=== PATIENT | female | born 1970 | race Caucasian/White ===

== ENCOUNTER 2018-01-02 15:59 | Emergency (ER) | payer OTHER, BC | END 2018-01-02 18:07 | disposition home or self-care (01) | LOC: M ED 15:59 | DX: S60.512A Abrasion of left hand, initial encounter (principal); S60.222A Contusion of left hand, initial encounter; W23.0XXA Caught, crushed, jammed, or pinched between moving objects, initial encounter; Y92.89 Other specified places as the place of occurrence of the external cause; I10 Essential (primary) hypertension; K21.9 Gastro-esophageal reflux disease without esophagitis; F41.9 Anxiety disorder, unspecified; F32.9 Major depressive disorder, single episode, unspecified; F43.10 Post-traumatic stress disorder, unspecified; Z87.891 Personal history of nicotine dependence; Z91.041 Radiographic dye allergy status; Z79.899 Other long term (current) drug therapy | CPT/HCPCS: 73130 ==

== ENCOUNTER → 2018-02-07 | Outpatient (REF) | payer MEDICARE ==
[2018-02-07 12:28] LABS: BASO # 0.1 10^3/uL (0.0-0.2); EOS # 0.1 10^3/uL (0.0-0.50); EOS % 2.3 % (0.0-3.0); HEMATOCRIT 34.5 % (36.0-47.0); HEMOGLOBIN 10.4 g/dl (12.0-15.5); LYMPH # 1.2 10^3/uL (1.5-4.5); LYMPH % 24.3 % (24.0-44.0); MEAN CORPUSCULAR HEMOGLOBIN 23.8 pg (27.0-33.0); MEAN CORPUSCULAR HGB CONC 30.1 g/dl (32.0-36.5); MEAN CORPUSCULAR VOLUME 78.9 fl (80.0-96.0); MONO # 0.3 10^3/uL (0.0-0.8); MONO % 5.4 % (0.0-5.0); NEUTROPHILS # 3.2 10^3/uL (1.8-7.7); PLATELET COUNT, AUTOMATED 362 10^3/uL (150-450); RED BLOOD COUNT 4.37 10^6/uL (4.00-5.40); RED CELL DISTRIBUTION WIDTH 18.7 % (11.5-14.5); RETICULOCYTE # 48.1 10^9/L (17-77); RETICULOCYTE % 1.1 % (0.5-1.5); WHITE BLOOD COUNT 4.8 10^3/uL (4.0-10.0)
[2018-02-07 13:11] LABS: TOTAL 25(OH) VITAMIN D 13.4 NG/ML (30.0-100.0)
[2018-02-07 13:12] LABS: FOLATE 8.9 NG/ML (>5.4); PTH INTACT 234.7 PG/ML (18.5-88.0); VITAMIN B12 LEVEL 167 PG/ML (247-911)
[2018-02-07 13:13] LABS: ALBUMIN 3.2 GM/DL (3.2-5.2); ALKALINE PHOSPHATASE 146 U/L (45-117); ALT/SGPT 17 U/L (12-78); ANION GAP 8 MEQ/L (8-16); AST/SGOT 24 U/L (7-37); BILIRUBIN,TOTAL 0.3 MG/DL (0.2-1.0); BLOOD UREA NITROGEN 16 MG/DL (7-18); CALCIUM LEVEL 7.9 MG/DL (8.5-10.1); CARBON DIOXIDE LEVEL 24 MEQ/L (21-32); CHLORIDE LEVEL 113 MEQ/L (98-107); CHOLESTEROL LEVEL 179 MG/DL (<200); CHOLESTEROL RISK RATIO 2.712 (<5); CREATININE FOR GFR 0.91 MG/DL (0.55-1.30); FERRITIN 4 NG/ML (8-252); FREE T4 1.15 NG/DL (0.76-1.46); GLOMERULAR FILTRATION RATE > 60.0 (>58); GLUCOSE, FASTING 73 MG/DL (70-100); HDL CHOLESTEROL 66 MG/DL (>40); IRON (FE) 24 UG/DL (50-170); NON-HDL-C 113 MG/DL; PERCENT SATURATION 7.1 % (13.2-45.0); POTASSIUM SERUM 4.4 MEQ/L (3.5-5.1); SODIUM LEVEL 145 MEQ/L (136-145); THYROID STIMULATING HORMONE 0.776 uIU/ML (0.358-3.740); TOTAL IRON BINDING CAPACITY 339 UG/DL (250-450); TOTAL PROTEIN 6.1 GM/DL (6.4-8.2); TRIGLYCERIDES LEVEL 65 MG/DL (<150)
[2018-02-07 14:12] LABS: ESTIMATED AVERAGE GLUCOSE 91 MG/DL (60-110); HEMOGLOBIN A1c 4.8 %
== END ==
LOC: M SFHCPLAZ 09:23
DX: I10 Essential (primary) hypertension (principal); Z98.84 Bariatric surgery status; E03.9 Hypothyroidism, unspecified; E66.9 Obesity, unspecified; Z13.220 Encounter for screening for lipoid disorders; E55.9 Vitamin D deficiency, unspecified
CPT/HCPCS: 82746

== ENCOUNTER → 2018-08-23 | Outpatient (CLI) | payer MEDICARE ==
[~2018-08-23] MED LIST: /AUGM25TA; /FENT75PA; LEVO112T2; METO1TAB7; OXYC10TA12; PERC5TAB8; PREV30TA; SOMA350T; SUCR1SS; TIGA300C; WELL100T; YAZ3TAB2; ZOLO50TA; lidoderm patch
--- NOTE | 2018-08-23 16:43 | REP ---
Right foot four views : There is no fracture or dislocation. Mineralization and joint spaces are normal. There are no calcifications or foreign bodies. Impression: Negative right foot . Electronically Signed by Joshua Rangel MD 08/23/2018 04:35 P
== END ==
LOC: M WUC 16:22
PROVIDERS: ATTEND Physician Assistant
DX: M79.671 Pain in right foot (principal)

== ENCOUNTER → 2018-09-11 | Outpatient (REF) | payer MEDICARE ==
[2018-09-11 19:04] LABS: BASO # 0.1 10^3/uL (0.0-0.2); EOS # 0.1 10^3/uL (0.0-0.50); EOS % 1.2 % (0.0-3.0); HEMATOCRIT 36.9 % (36.0-47.0); HEMOGLOBIN 11.4 g/dl (12.0-15.5); LYMPH # 1.4 10^3/uL (1.5-4.5); LYMPH % 17.7 % (24.0-44.0); MEAN CORPUSCULAR HEMOGLOBIN 24.5 pg (27.0-33.0); MEAN CORPUSCULAR HGB CONC 30.9 g/dl (32.0-36.5); MEAN CORPUSCULAR VOLUME 79.4 fl (80.0-96.0); MONO # 0.5 10^3/uL (0.0-0.8); MONO % 5.7 % (0.0-5.0); NEUTROPHILS % 73.9 % (36.0-66.0); PLATELET COUNT, AUTOMATED 349 10^3/uL (150-450); RED BLOOD COUNT 4.65 10^6/uL (4.00-5.40); WHITE BLOOD COUNT 8.1 10^3/uL (4.0-10.0)
[2018-09-11 19:12] LABS: ALBUMIN 3.7 GM/DL (3.2-5.2); BILIRUBIN,TOTAL 0.5 MG/DL (0.2-1.0); CALCIUM LEVEL 8.2 MG/DL (8.5-10.1); CREATININE FOR GFR 1.59 MG/DL (0.55-1.30); FREE T4 0.86 NG/DL (0.76-1.46); MAGNESIUM LEVEL 2.2 MG/DL (1.8-2.4); POTASSIUM SERUM 4.9 MEQ/L (3.5-5.1); PTH INTACT 376.8 PG/ML (18.5-88.0); THYROID STIMULATING HORMONE 5.86 uIU/ML (0.358-3.740); TOTAL PROTEIN 6.8 GM/DL (6.4-8.2)
== END ==
LOC: M SFHCPLAZ 14:10
PROVIDERS: ATTEND Nurse Practitioner Family
DX: I10 Essential (primary) hypertension (principal); E03.9 Hypothyroidism, unspecified; E55.9 Vitamin D deficiency, unspecified; D64.9 Anemia, unspecified

== ENCOUNTER → 2018-09-30 | Outpatient (REF) | payer MEDICARE ==
[2018-09-30 15:40] LABS: ALBUMIN 3.7 GM/DL (3.2-5.2); CALCIUM LEVEL 8.6 MG/DL (8.5-10.1); CREATININE FOR GFR 1.24 MG/DL (0.55-1.30); GLOMERULAR FILTRATION RATE 49.4 (>58); PHOSPHORUS LEVEL 3.9 MG/DL (2.5-4.9); POTASSIUM SERUM 4.8 MEQ/L (3.5-5.1)
== END ==
LOC: M SFHCPLAZ 13:31
PROVIDERS: ATTEND Nurse Practitioner Family
DX: N18.3 Chronic kidney disease, stage 3 (moderate) (principal)

== ENCOUNTER 2020-03-23 22:10 | Emergency (ER) | payer MEDICARE ==
[~2020-03-23] VITALS: Ht 165.1 cm; Wt 90.7 kg
[~2020-03-23 22:10] MED LIST changes: -/FENT75PA; +FENT1DIS16
--- NOTE | 2020-03-23 22:45 | REPVR ---
PROCEDURE INFORMATION: Exam: XR Chest, 1 View Exam date and time: 03/23/2020 10:31 PM Age: 49 years old Clinical indication: Other: Chest pain TECHNIQUE: Imaging protocol: XR of the chest Views: 1 view. COMPARISON: No relevant prior studies available. FINDINGS: Lungs: Unremarkable. No consolidation. Pleural space: Unremarkable. No pleural effusion. No pneumothorax. Heart/Mediastinum: Unremarkable. No cardiomegaly. Bones/joints: Unremarkable. IMPRESSION: Negative chest. Electronically signed by: Mani Olson On 03/23/2020 22:45:32 PM
[2020-03-23 23:00] LABS: BASO # 0.1 10^3/uL (0.0-0.2); BASO % 0.9 % (0.0-1.0); EOS # 0.1 10^3/uL (0.0-0.5); EOS % 1.6 % (0.0-3.0); HEMATOCRIT 33.5 % (36.0-47.0); HEMOGLOBIN 10.6 g/dl (12.0-15.5); LYMPH # 1.8 10^3/uL (1.5-5.0); LYMPH % 24.5 % (24.0-44.0); MEAN CORPUSCULAR HEMOGLOBIN 26.2 pg (27.0-33.0); MEAN CORPUSCULAR HGB CONC 31.6 g/dl (32.0-36.5); MEAN CORPUSCULAR VOLUME 82.7 fl (80.0-96.0); MONO # 0.6 10^3/uL (0.0-0.8); MONO % 8.3 % (0.0-5.0); NEUTROPHILS # 4.8 10^3/uL (1.5-8.5); NEUTROPHILS % 64.4 % (36.0-66.0); PLATELET COUNT, AUTOMATED 333 10^3/uL (150-450); RED BLOOD COUNT 4.05 10^6/uL (4.00-5.40); WHITE BLOOD COUNT 7.5 10^3/uL (4.0-10.0)
[2020-03-23 23:13] LABS: INR 0.99; PROTHROMBIN TIME 13.3 SECONDS (11.8-14.0)
[2020-03-23] MEDS ORDERED: LISI-538 (23:36)
[2020-03-23 23:40] LABS: ALBUMIN 3.7 GM/DL (3.2-5.2); ALT/SGPT 23 U/L (12-78); BILIRUBIN,DIRECT 0.1 MG/DL (0.0-0.2); BILIRUBIN,TOTAL 0.3 MG/DL (0.2-1.0); BLOOD UREA NITROGEN 21 MG/DL (7-18); CALCIUM LEVEL 8.7 MG/DL (8.5-10.1); CARBON DIOXIDE LEVEL 23 MEQ/L (21-32); CHLORIDE LEVEL 111 MEQ/L (98-107); CK-MB VALUE MASS 4.1 NG/ML (<3.6); CPK CREATINE PHOSPHOKINASE 275 U/L (26-192); CREATININE FOR GFR 1.11 MG/DL (0.55-1.30); FREE T4 1.09 NG/DL (0.76-1.46); GLOMERULAR FILTRATION RATE 55.6 (>58); GLUCOSE, FASTING 85 MG/DL (70-100); LIPASE 243 U/L (73-393); MAGNESIUM LEVEL 2.2 MG/DL (1.8-2.4); MB/CK RELATIVE INDEX 1.49 (< OR =4); PHOSPHORUS LEVEL 2.7 MG/DL (2.5-4.9); POTASSIUM SERUM 3.2 MEQ/L (3.5-5.1); SODIUM LEVEL 141 MEQ/L (136-145); TOTAL PROTEIN 6.9 GM/DL (6.4-8.2); TROPONIN I < 0.02 NG/ML (< 0.10)
[2020-03-24] MEDS ORDERED: POTASSIUM CHLORIDE 10 MEQ SR TABLET PO ONE
[2020-03-24] MEDS ORDERED: METOPROLOL SUCC (TopROL XL) 50MG **XL** TAB PO ONE
[2020-03-24] MEDS ORDERED: NS 500 ML IV ONE
[2020-03-24 00:35] VITALS: BP 143/95
[2020-03-24 03:15] VITALS: BP 164/83
--- NOTE | 2020-03-27 10:05 | ECGEPIP ---
[facility] - ED Test Date: 2020-03-23 Pat Name: THERESA TRUJILLO Department: Room: - Gender: Female Wound Care Coordinator: : 1970 Requested By: BERNA Garcia Order Number: [id number] Reading MD: Petros Chinchilla Measurements Intervals Golden Rate: 84 P: 60 VT: 156 QRS: 4 QRSD: 86 T: 50 QT: 381 QTc: 451 Interpretive Statements SINUS RHYTHM INCOMPLETE RIGHT BUNDLE BRANCH BLOCK NO PRIORS FOR COMPARISON Electronically Signed on 03-27-2020 10:04:50 EDT by Petros Chinchilla
== END 2020-03-24 04:00 | disposition home or self-care (01) ==
LOC: M ED 22:10
DX: R55 Syncope and collapse (principal); R00.2 Palpitations; I45.19 Other right bundle-branch block; I10 Essential (primary) hypertension; E86.0 Dehydration; F17.200 Nicotine dependence, unspecified, uncomplicated; Z91.14 Patient's other noncompliance with medication regimen

== ENCOUNTER → 2020-04-07 | Outpatient (CLI) | payer MEDICARE ==
[~2020-04-07] MED LIST changes: +LISI-538
[2020-04-07 11:13] LABS: BASO # 0.1 10^3/uL (0.0-0.2); BASO % 1.2 % (0.0-1.0); EOS # 0.2 10^3/uL (0.0-0.5); HEMATOCRIT 39.6 % (36.0-47.0); HEMOGLOBIN 12.3 g/dl (12.0-15.5); LYMPH # 1.2 10^3/uL (1.5-5.0); LYMPH % 21.8 % (24.0-44.0); MEAN CORPUSCULAR HEMOGLOBIN 26.1 pg (27.0-33.0); MEAN CORPUSCULAR HGB CONC 31.1 g/dl (32.0-36.5); MEAN CORPUSCULAR VOLUME 83.9 fl (80.0-96.0); MONO # 0.4 10^3/uL (0.0-0.8); MONO % 7.5 % (0.0-5.0); NEUTROPHILS # 3.7 10^3/uL (1.5-8.5); NEUTROPHILS % 65.1 % (36.0-66.0); PLATELET COUNT, AUTOMATED 357 10^3/uL (150-450); RED BLOOD COUNT 4.72 10^6/uL (4.00-5.40); WHITE BLOOD COUNT 5.7 10^3/uL (4.0-10.0)
[2020-04-07 11:51] LABS: ALBUMIN 3.9 GM/DL (3.2-5.2); ALT/SGPT 23 U/L (12-78); BILIRUBIN,TOTAL 0.5 MG/DL (0.2-1.0); BLOOD UREA NITROGEN 16 MG/DL (7-18); CARBON DIOXIDE LEVEL 27 MEQ/L (21-32); CHLORIDE LEVEL 108 MEQ/L (98-107); CHOLESTEROL LEVEL 202 MG/DL (<200); CHOLESTEROL RISK RATIO 2.657 (<5); CREATININE FOR GFR 1.07 MG/DL (0.55-1.30); FERRITIN 4 NG/ML (8-252); GLUCOSE, FASTING 86 MG/DL (70-100); HDL CHOLESTEROL 76 MG/DL (>40); IRON (FE) 34 UG/DL (50-170); LDL CHOLESTEROL 112 MG/DL (<100); NON-HDL-C 126 MG/DL; PERCENT SATURATION 8.5 % (13.2-45.0); POTASSIUM SERUM 4.1 MEQ/L (3.5-5.1); SODIUM LEVEL 141 MEQ/L (136-145); TOTAL IRON BINDING CAPACITY 401 UG/DL (250-450); TRIGLYCERIDES LEVEL 68 MG/DL (<150)
[2020-04-07 12:50] LABS: TOTAL 25(OH) VITAMIN D 21.9 NG/ML (30.0-100.0)
[2020-04-07 12:51] LABS: PTH INTACT 273.4 PG/ML (18.5-88.0); VITAMIN B12 LEVEL 214 PG/ML
[2020-04-07 12:52] LABS: FOLATE 8.6 NG/ML
[2020-04-07 13:05] LABS: MONO SCRN NEGATIVE (NEGATIVE)
== END ==
LOC: M PLALAB 08:29
PROVIDERS: ATTEND Nurse Practitioner Family
DX: E03.9 Hypothyroidism, unspecified (principal); N18.3 Chronic kidney disease, stage 3 (moderate); F32.9 Major depressive disorder, single episode, unspecified; Z98.84 Bariatric surgery status; E55.9 Vitamin D deficiency, unspecified; N25.81 Secondary hyperparathyroidism of renal origin; I12.9 Hypertensive chronic kidney disease with stage 1 through stage 4 chronic kidney disease, or unspecified chronic kidney disease

== ENCOUNTER → 2020-10-26 | Outpatient (REF) | payer BC ==
[~2020-10-26] MED LIST changes: -LISI-538; +LISI20TA33
[2020-10-26 15:36] LABS: BASO # 0.1 10^3/uL (0.0-0.2); BASO % 0.8 % (0.0-1.0); EOS # 0.1 10^3/uL (0.0-0.5); EOS % 1.8 % (0.0-3.0); HEMATOCRIT 34.5 % (36.0-47.0); HEMOGLOBIN 10.9 g/dl (12.0-15.5); LYMPH # 1.6 10^3/uL (1.5-5.0); LYMPH % 21.5 % (24.0-44.0); MEAN CORPUSCULAR HEMOGLOBIN 26.7 pg (27.0-33.0); MEAN CORPUSCULAR HGB CONC 31.6 g/dl (32.0-36.5); MEAN CORPUSCULAR VOLUME 84.4 fl (80.0-96.0); MONO # 0.6 10^3/uL (0.0-0.8); MONO % 7.5 % (2.0-8.0); NEUTROPHILS # 5.1 10^3/uL (1.5-8.5); NEUTROPHILS % 67.7 % (36.0-66.0); PLATELET COUNT, AUTOMATED 327 10^3/uL (150-450); RED BLOOD COUNT 4.09 10^6/uL (4.00-5.40); WHITE BLOOD COUNT 7.6 10^3/uL (4.0-10.0)
[2020-10-26 16:02] LABS: ALT/SGPT 22 U/L (12-78); BILIRUBIN,TOTAL 0.4 MG/DL (0.2-1.0); BLOOD UREA NITROGEN 13 MG/DL (7-18); CALCIUM LEVEL 8.2 MG/DL (8.5-10.1); CARBON DIOXIDE LEVEL 23 MEQ/L (21-32); CHLORIDE LEVEL 108 MEQ/L (98-107); CHOLESTEROL LEVEL 212 MG/DL (<200); CREATININE FOR GFR 0.94 MG/DL (0.55-1.30); GLOMERULAR FILTRATION RATE > 60.0 (>51); GLUCOSE, FASTING 75 MG/DL (70-100); HDL CHOLESTEROL 87 MG/DL (>40); POTASSIUM SERUM 3.7 MEQ/L (3.5-5.1); SODIUM LEVEL 138 MEQ/L (136-145); TRIGLYCERIDES LEVEL 71 MG/DL (<150)
[2020-10-26 16:03] LABS: ALBUMIN 3.8 GM/DL (3.2-5.2); CHOLESTEROL RISK RATIO 2.436 (<5); FERRITIN 6 NG/ML (8-252); FREE T4 1.37 NG/DL (0.76-1.46); LDL CHOLESTEROL 111 MG/DL (<100); NON-HDL-C 125 MG/DL; TOTAL PROTEIN 6.8 GM/DL (6.4-8.2)
[2020-10-26 16:04] LABS: PTH INTACT 383.7 PG/ML (18.5-88.0); TOTAL 25(OH) VITAMIN D 20.1 NG/ML (30.0-100.0)
[2020-10-26 16:05] LABS: VITAMIN B12 LEVEL > 2000 PG/ML (247-911)
[2020-10-26 16:06] LABS: FOLATE 12.2 NG/ML (>5.4)
== END ==
LOC: M SFHCPLAZ 14:25
PROVIDERS: ATTEND Nurse Practitioner Family
DX: D64.9 Anemia, unspecified (principal); N18.30 Chronic kidney disease, stage 3 unspecified; E53.8 Deficiency of other specified B group vitamins; E03.9 Hypothyroidism, unspecified; E78.2 Mixed hyperlipidemia; I12.9 Hypertensive chronic kidney disease with stage 1 through stage 4 chronic kidney disease, or unspecified chronic kidney disease; N25.81 Secondary hyperparathyroidism of renal origin; E55.9 Vitamin D deficiency, unspecified

== ENCOUNTER → 2020-11-01 | Outpatient (CLI) | payer BC ==
--- NOTE | 2020-11-01 11:35 | REPMRS ---
Patient History The patient states she has not had a clinical breast exam in over a year. Patient is postmenopausal and is nulliparous. Family history of breast cancer in maternal aunt, unknown cancer at age 50 in sister, unknown cancer in maternal uncle. Gastric bypass surgery 2005 No breast complaints today Patient signed the MRS sheet Baseline @ 50 1st covid vaccine 09/24/20-left arm-Moderna 2nd covid vaccine 10/22/20-left arm Digital Woman Screen Mammo: November 01, 2020 - Exam #: [id number] Bilateral CC and MLO view(s) were taken. Technologist: Gabbie Renee, Technologist FINDINGS: There are scattered fibroglandular densities. Screening. Digital screening (2D) mammography was performed bilaterally. Additionally, breast tomosynthesis (3D) mammography was perfomed bilaterally in the CC and MLO projections. Today's examination is the initial screening examination. By history, the patient has no complaints of a palpable breast abnormality or other significant breast complaints. The breasts are symmetric in size and shape. There are no masses. There is no internal architectural distortion. There are no suspicious microcalcific clusters. Skin thickening or nipple retraction is not present. IMPRESSION: BI-RADS Category 2- Benign Findings(s). There is no evidence of malignant alteration of the breasts. Followup examination recommended in one year. The Volpara volumetric breast density category is B, there are scattered areas of fibroglandular density. This mammogram was read with the assistance of [employer],an FDA approved computer aided detection system for mammography. The lifetime Tyrer-Cuzick score is 17.1 % Negative x-ray reports should not delay surgical consultation if a dominant or clinically suspicious mass is present. Not all breast cancers can be identified by mammography. Therefore, we recommend that you continue to perform regular breast self-examination and physical examination and then promptly contact your physician of any concerns or changes. Adenosis and dense breasts may obscure an underlying neoplasm. Assessment: BI-RADS/ACR category 2 mammogram. Benign Findings. Recommendation Routine screening mammogram of both breasts in 1 year. Electronically Signed By: Donato White DO 11/01/20 [id number]
--- NOTE | 2020-11-01 16:15 | DEXAMM ---
INDICATION: Z13.820 SCR FOR OSTEOPOROSIS. COMPARISON: None. TECHNIQUE: Bone density was measured using dual-energy x-ray absorptiometry (DEXA). FINDINGS: AP SPINE L1-L4 BMD 1.220 g/cm2 Young Adult T-Score 0.2 Age Matched Z-Score 0.6. LT FEMUR, TOTAL BMD 0.890 g/cm2 Young Adult T-Score -0.9 Age Matched Z-Score -0.5. LT NECK BMD 0.846 g/cm2 Young Adult T-Score -1.4 Age Matched Z-Score -0.6. RT FEMUR, TOTAL BMD 0.873 g/cm2 Young Adult T-Score -1.1 Age Matched Z-Score -0.6. RT NECK BMD 0.795 g/cm2 Young Adult T-Score -1.8 Age Matched Z-Score -1.0. IMPRESSION: There is normal bone density of the spine. There is low bone density of the left hip. There is low bone density of the right hip. FOLLOW-UP: Recommendation for the next bone density exam: 2 years. <Electronically signed by Joshua Ulloa > 11/01/20 [id number]
== END ==
LOC: M WHC 09:38
PROVIDERS: ATTEND Nurse Practitioner Family
DX: Z12.31 Encounter for screening mammogram for malignant neoplasm of breast (principal); Z13.820 Encounter for screening for osteoporosis; Z80.3 Family history of malignant neoplasm of breast; Z98.84 Bariatric surgery status; M85.851 Other specified disorders of bone density and structure, right thigh; M85.852 Other specified disorders of bone density and structure, left thigh

== ENCOUNTER → 2020-11-24 | Outpatient (CLI) | payer BC ==
--- NOTE | 2020-11-24 14:36 | REP ---
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 COMPARISON: None. TECHNIQUE: Sagittal and axial T1 and T2-weighted scans are acquired in the usual fashion with and without fat saturation. Sequences include spin echo, turbo spin-echo, and STIR imaging sequences. FINDINGS: Lumbar vertebral body heights are preserved. Alignment is normal. No bony destructive lesion is seen. The tip of the conus medullaris is normal in position and appearance at L1. Normal caliber aorta is seen. No extra vertebral abnormality is observed. Sagittal and axial images taken at the L1-2 disc level show no evidence of disc protrusion, central canal stenosis, or neural foraminal encroachment. At L2-3, there is minimal diffuse disc bulging. No spinal stenosis is seen. Minimal facet hypertrophy is present bilaterally. At L3-4, there is degenerative disc space narrowing and decreased signal intensity. Diffuse disc bulging is seen. This indents the ventral margin of the thecal sac. There is mild central canal stenosis at L3-4 due to this in combination with ligamentum flavum and facet hypertrophy. The midline AP dimension of the thecal sac at L3-4 is 8 mm. There is left foraminal disc bulging. mild foraminal encroachment on the left. At L4-L5, there is a central small focal disc protrusion with annulus tear. Combined with ligamentum flavum and facet hypertrophy and developmentally short pedicles, this produces a mild central canal stenosis. The midline AP dimension of the thecal sac at L4-5 at the level of the central disc protrusion is 6 mm. No nerve root compression is seen. At L5-S1 there is [id number] facet hypertrophy bilaterally. No focal disc protrusion is seen. There is some neural foraminal narrowing on the left due to facet hypertrophy and disc bulging. There is no evidence of spondylolysis or spondylolisthesis. IMPRESSION: Degenerative spondylosis changes. Central disc protrusion at L4-5 with central canal stenosis at L4-5 and, to a lesser extent L3-4. Mild left-sided neural foraminal narrowing at L3-4 and L5-S1. <Electronically signed by Osito Mcneil > 11/24/20 [id number]
== END ==
LOC: M PLARAD 13:08
PROVIDERS: ATTEND Physician Assistant
DX: M47.816 Spondylosis without myelopathy or radiculopathy, lumbar region (principal)

== ENCOUNTER → 2021-02-16 | Outpatient (CLI) | payer BC ==
[2021-02-16 17:26] LABS: BASO # 0.1 10^3/uL (0.0-0.2); BASO % 1.1 % (0.0-1.0); EOS # 0.3 10^3/uL (0.0-0.5); HEMATOCRIT 37.1 % (36.0-47.0); HEMOGLOBIN 11.6 g/dl (12.0-15.5); LYMPH # 2.2 10^3/uL (1.5-5.0); MEAN CORPUSCULAR HEMOGLOBIN 26.4 pg (27.0-33.0); MEAN CORPUSCULAR HGB CONC 31.3 g/dl (32.0-36.5); MEAN CORPUSCULAR VOLUME 84.3 fl (80.0-96.0); MONO # 0.6 10^3/uL (0.0-0.8); MONO % 7.1 % (2.0-8.0); NEUTROPHILS # 5.3 10^3/uL (1.5-8.5); NEUTROPHILS % 62.2 % (36.0-66.0); PLATELET COUNT, AUTOMATED 356 10^3/uL (150-450); WHITE BLOOD COUNT 8.5 10^3/uL (4.0-10.0)
[2021-02-16 18:17] LABS: BLOOD UREA NITROGEN 22 MG/DL (7-18); CALCIUM LEVEL 9.1 MG/DL (8.5-10.1); CARBON DIOXIDE LEVEL 26 MEQ/L (21-32); CHLORIDE LEVEL 111 MEQ/L (98-107); CK-MB VALUE MASS < 1.0 NG/ML (<3.6); CPK CREATINE PHOSPHOKINASE 108 U/L (26-192); CREATININE FOR GFR 1.41 MG/DL (0.55-1.30); FREE T4 1.06 NG/DL (0.76-1.46); GLUCOSE, FASTING 79 MG/DL (70-100); MB/CK RELATIVE INDEX 0.93 (< OR =4); POTASSIUM SERUM 4.8 MEQ/L (3.5-5.1); SODIUM LEVEL 142 MEQ/L (136-145); TROPONIN I < 0.02 NG/ML (< 0.10)
== END ==
LOC: M PLALAB 15:03
PROVIDERS: ATTEND Nurse Practitioner Family
DX: R42 Dizziness and giddiness (principal)

== ENCOUNTER → 2021-05-25 | Outpatient (CLI) | payer BC ==
[2021-05-25 17:35] LABS: BASO # 0.1 10^3/uL (0.0-0.2); BASO % 0.9 % (0.0-1.0); EOS # 0.2 10^3/uL (0.0-0.5); EOS % 2.1 % (0.0-3.0); HEMATOCRIT 37.7 % (36.0-47.0); HEMOGLOBIN 11.9 g/dl (12.0-15.5); LYMPH # 1.8 10^3/uL (1.5-5.0); LYMPH % 21.5 % (24.0-44.0); MEAN CORPUSCULAR HEMOGLOBIN 27.9 pg (27.0-33.0); MEAN CORPUSCULAR HGB CONC 31.6 g/dl (32.0-36.5); MEAN CORPUSCULAR VOLUME 88.5 fl (80.0-96.0); MONO # 0.5 10^3/uL (0.0-0.8); MONO % 6.4 % (2.0-8.0); NEUTROPHILS # 5.8 10^3/uL (1.5-8.5); NEUTROPHILS % 68.7 % (36.0-66.0); PLATELET COUNT, AUTOMATED 326 10^3/uL (150-450); RED BLOOD COUNT 4.26 10^6/uL (4.00-5.40); WHITE BLOOD COUNT 8.5 10^3/uL (4.0-10.0)
[2021-05-25 17:48] LABS: C REACTIVE PROTEIN QUANTITATIV < 0.30 MG/DL (0.00-0.30); RHEUMATOID FACTOR QUANT < 10.0 IU/ML (<15.0)
[2021-05-25 18:26] LABS: ERYTHROCYTE SEDIMENTATION RATE 11 mm/hr (0-30)
== END ==
LOC: M PLALAB 15:25
PROVIDERS: ATTEND Physician Assistant
DX: M25.474 Effusion, right foot (principal)